=== PATIENT | male | born 1990 | race American Indian/Alaskan Native ===

== ENCOUNTER 2017-12-29 15:00 | Emergency (ER) | payer OTHER ==
[2017-12-29 15:15] VITALS: BMI 30.1
[2017-12-29 15:20] VITALS: BP 129/74; PULSE 82; RESP 20; TEMP 98; O2SAT 99
--- NOTE | 2017-12-29 15:27 | ED PDOC ---
Arrival/HPI - General Chief Complaint: Finger,Hand,&Wrist Time Seen by Provider: 12/29/17 15:27 Historian: Patient - History of Present Illness Narrative History of Present Illness (Text): 12/29/17 15:27 This 27 yo male with pmh Migraines, presents to this ED c/o left 4th finger pain x 5 days ago. Patient stated her girlfriend twisted his finger, and he felt a cracking sound. Patient denies other complains. Time/Duration: < week Symptom Onset: Sudden Symptom Course: Worsening Quality: Aching Context: Home Past Medical History - Provider Review Nursing Documentation Reviewed: Yes - Infectious Disease Hx of Infectious Diseases: None - Psychiatric Hx Substance Use: No - Anesthesia Hx Anesthesia: No Hx Anesthesia Reactions: No Hx Malignant Hyperthermia: No Family/Social History - Physician Review Nursing Documentation Reviewed: Yes Family/Social History: Other (noncontributory) Smoking Status: Current Some Days Smoker Hx Alcohol Use: No Hx Substance Use: No Allergies/Home Meds Allergies/Adverse Reactions: Allergies No Known Allergies Allergy (Verified 12/29/17 15:36) Review of Systems - Review of Systems Constitutional: Normal. absent: Fatigue, Weight Change, Fevers Eyes: Normal ENT: Normal Respiratory: Normal Cardiovascular: Normal Gastrointestinal: Normal Genitourinary Male: Normal Musculoskeletal: Other (left finger pain and swelling) Skin: Normal Neurological: Normal Endocrine: Normal Hemo/Lymphatic: Normal Psychiatric: Normal Physical Exam Vital Signs Temp Pulse Resp BP Pulse Ox 12/29/17 15:16 98.0 F 82 20 129/74 99 Temperature: Afebrile Blood Pressure: Normal Pulse: Regular Respiratory Rate: Normal Appearance: Positive for: Well-Appearing, Non-Toxic, Comfortable Pain Distress: None Mental Status: Positive for: Alert and Oriented X 3 - Systems Exam Head: Present: Atraumatic, Normocephalic Pupils: Present: PERRL Extroacular Muscles: Present: EOMI Conjunctiva: Present: Normal Mouth: Present: Moist Mucous Membranes Neck: Present: Normal Range of Motion Upper Extremity: Present: NORMAL PULSES, Tenderness (Mild tenderness and swelling over left 4th PIPJ), Swelling, Neurovascularly Intact, Capillary Refill < 2s. No: Cyanosis, Edema, Erythema, Temperature Abnormalties, Deformity Lower Extremity: Present: Normal Inspection Neurological: Present: GCS=15, CN II-XII Intact, Speech Normal, Motor Func Grossly Intact, Normal Sensory Function, Normal Cerebellar Funct, Gait Normal Skin: Present: Warm, Dry, Normal Color. No: Rashes Psychiatric: Present: Alert, Oriented x 3, Normal Insight, Normal Concentration Medical Decision Making ED Course and Treatment: 12/29/17 16:17 Re-evaluation. Patient feels better. Discussed results and plan with patient who expresses understanding. All questions answered and there is agreement with the plan to discharge home with instructions. Patient stable for discharge. Return if symptoms persist or worsen. Patient was recommended to use finger splint given in this ED visit for 7 days. To f/u pmd in 1-2 days for revaluation. Re-evaluation Time: 16:17 Reassessment Condition: Re-examined, Improved - RAD Interpretation Narrative RAD Interpretations (Text): 12/29/17 16:18 Finger splint: No Fx Radiology Orders: 12/29/17 15:36 HAND LEFT 4TH DIGIT (FINGER) [RAD] Stat - Medication Orders Current Medication Orders: Discontinued Medications Ibuprofen (Motrin Tab) 600 mg PO STAT STA Stop: 12/29/17 15:39 Last Admin: 12/29/17 16:13 Dose: 600 mg MAR Pain/Vitals Document 12/29/17 16:13 RD (Rec: 12/29/17 16:13 RD [id number]) Pain Reassessment Is This A Pain ReAssessment? No Sleep Is patient sleeping during reassessment? No Presence of Pain Presence of Pain Yes - Procedure PROCEDURE NOTE (Text): 12/29/17 16:22 shalonda splint was applied by Matthew EUGENE. n/v intact. capillary refill <2 sec Disposition/Present on Arrival - Present on Arrival Any Indicators Present on Arrival: No History of DVT/PE: No History of Uncontrolled Diabetes: No Urinary Catheter: No History of Decub. Ulcer: No History Surgical Site Infection Following: None - Disposition Have Diagnosis and Disposition been Completed?: Yes Diagnosis: Strain of finger of left hand Disposition: HOME/ ROUTINE Disposition Time: 16:18 Patient Plan: Discharge Condition: GOOD Discharge Instructions (ExitCare): Finger Sprain (DC) Additional Instructions: Call private doctor for follow up visit in 1-2 days. Use finger splint for at least 7 days. Keep hand elevated, ice, rest, splint. Do not remove splint at any time for 1 week. Take medication as instructed with food. Return to emergency if symptoms worsen. Prescriptions: Ibuprofen [Motrin] 600 mg PO Q8 PRN #20 tab PRN Reason: Pain, Severe (8-10) Referrals: April Storm MD [Primary Care Provider] - Follow up with primary Forms: [facility] (Turkish), WORK NOTE
--- NOTE | 2017-12-29 16:37 | RAD ---
PROCEDURE: Left ring finger radiographs. HISTORY: pain s/p trauma attention 4th digit. COMPARISON: None. TECHNIQUE: AP radiograph of the left hand, as well as spot oblique and lateral images of left ring finger were obtained. FINDINGS: LEFT RING FINGER: Left ring finger normal, without fracture of focal lesion. Remainder of the left hand (as seen on the AP view) is grossly unremarkable. JOINTS: Normal. SOFT TISSUES: Normal. OTHER FINDINGS: None. IMPRESSION: Normal left ring finger radiographs. Concordant results with the preliminary interpretation rendered by the emergency department physician procedure.
== END 2017-12-29 16:42 | disposition home or self-care (01) ==
LOC: MERGE 15:00 → ED 15:00
DX: S66.912A Strain of unspecified muscle, fascia and tendon at wrist and hand level, left hand, initial encounter (principal); W50.2XXA Accidental twist by another person, initial encounter; Y92.009 Unspecified place in unspecified non-institutional (private) residence as the place of occurrence of the external cause